=== PATIENT | male | born 1980 | race Caucasian/White ===

== ENCOUNTER 2020-12-28 04:23 | Emergency (ER) | payer SELFPAY ==
[2020-12-28] MEDS ORDERED: NORCO 5-325 TA1 EACH PO (05:22)
== END 2020-12-28 05:40 | disposition home or self-care (01) ==
LOC: FER 04:23
DX: G56.03 Carpal tunnel syndrome, bilateral upper limbs (principal); Z79.899 Other long term (current) drug therapy; Z88.1 Allergy status to other antibiotic agents; Z88.5 Allergy status to narcotic agent
CPT/HCPCS: 99283